=== PATIENT | male | born 1985 | race Caucasian/White ===

== ENCOUNTER → 2018-10-10 | Outpatient (CLI) | payer BC ==
--- NOTE | 2018-10-10 11:08 | US ---
EXAMINATION TYPE: US thyroid st tissue head/neck DATE OF EXAM: 10/10/2018 COMPARISON: NONE CLINICAL HISTORY: R22.1 Localized swelling, mass and lump, neck. palp on right soft tissue neck for a few days, no recent infection 0.8 x 0.7 x 0.3cm normal appearing lymph node seen. If additional evaluation is required, CT neck wit h contrast could be performed. Tech impression to [place] at office IMPRESSION: 1. There appears be a small lymph node present at the palpable abnormality of the right neck.
== END | disposition home or self-care (01) ==
LOC: RADUSWWP 10:34
PROVIDERS: ATTEND Internal Medicine
DX: R22.1 Localized swelling, mass and lump, neck (principal)
CPT/HCPCS: 76536